=== PATIENT | female | born 1980 | race African-American/Black ===

== ENCOUNTER → 2018-10-11 | Outpatient (CLI) | payer BC ==
[2018-10-11 18:38] LABS: CHOLESTEROL RISK RATIO 4.2
[2018-10-11 19:10] LABS: THYROID STIMULATING HORMONE 2.65 uIU/mL (0.465-4.680)
== END ==
LOC: ZCOL.LAB 17:14
PROVIDERS: Family Medicine
DX: Z13.220 Encounter for screening for lipoid disorders (principal); N97.9 Female infertility, unspecified

== ENCOUNTER → 2018-10-13 | Outpatient (CLI) | payer BC | LOC: COL.RAD 12:17 | DX: Z12.31 Encounter for screening mammogram for malignant neoplasm of breast (principal); N97.9 Female infertility, unspecified; N85.8 Other specified noninflammatory disorders of uterus ==

== ENCOUNTER 2020-04-23 11:49 | Emergency (ER) | payer OTHER ==
[~2020-04-23] VITALS: Ht 172.7 cm; Wt 79.5 kg
[2020-04-23 11:52] VITALS: TEMP 97.8
[2020-04-23] MEDS ORDERED: FLEXERIL 1010 MG/TAB PO (13:16)
[2020-04-23] MEDS ORDERED: NAPROSYN500 MG PO (13:17)
[2020-04-23 13:52] VITALS: BP 102/65; PULSE 65
== END 2020-04-23 13:56 | disposition home or self-care (01) ==
LOC: COL.ER 11:49
DX: M54.2 Cervicalgia (principal); R40.2412 Glasgow coma scale score 13-15, at arrival to emergency department; F17.210 Nicotine dependence, cigarettes, uncomplicated; V43.52XA Car driver injured in collision with other type car in traffic accident, initial encounter